=== PATIENT | male | born 1985 | race Caucasian/White ===

== ENCOUNTER 2025-03-05 07:57 | Outpatient (CLI) | payer OTHER | END 2025-03-05 08:17 | disposition home or self-care (01) | LOC: MRI 07:57 | DX: M25.532 Pain in left wrist (principal); S63.502A Unspecified sprain of left wrist, initial encounter; M25.562 Pain in left knee; S83.242A Other tear of medial meniscus, current injury, left knee, initial encounter; M25.561 Pain in right knee; S83.241A Other tear of medial meniscus, current injury, right knee, initial encounter | CPT/HCPCS: 73221; 73721 ==